=== PATIENT | female | born 1965 | race Caucasian/White ===

== ENCOUNTER 2016-12-05 13:05 | Emergency (ER) | payer MEDICAID ==
[2016-12-05 13:23] VITALS: BP 128/79
--- NOTE | 2016-12-05 13:52 | EDM.PDOC ---
ED HPI GENERAL MEDICAL PROBLEM - General Chief Complaint: Abdominal Pain Stated Complaint: FEEDING TUBE ISSUE Time Seen by Provider: 12/05/16 13:42 Source of Information: Reports: Patient, Family, Old records, RN notes reviewed History Limitations: Reports: No limitations - History of Present Illness INITIAL COMMENTS - FREE TEXT/NARRATIVE: 51-year-old female presents to the emergency department today with concern of infection around her G-tube, she has had complications with prior G-tube which included infection and abscess this was recently moved to a new site middle of October, she states tube has been functioning properly no issues however today she started having greenish discharge from around the tube, the prior wound from the first G-tube is healing well still open but no drainage from that site , she denies any fevers has been on prophylactic antibiotics of amoxicillin but cannot take that medication secondary to side effects of nausea and vomiting - Related Data Allergies Allergy/AdvReac Type Severity Reaction Status Date / Time Sulfa (Sulfonamide Allergy Mild Rash Verified 12/05/16 13:26 Antibiotics) morphine AdvReac Vomiting Verified 12/05/16 13:26 Tape AdvReac Blisters Uncoded 12/05/16 13:26 Home Meds: Home Meds Acetaminophen [Acetaminophen Extra Strength] 500 mg PO Q6H PRN 10/29/16 [History ] Aspirin [Ecotrin] 81 mg PO DAILY 10/29/16 [History] Calcium Citrate/Vitamin D3 [Calcium Citrate + D] 1 each PO BID 10/29/16 [History ] Cholecalciferol (Vitamin D3) [Vitamin D3] 3,000 unit PO DAILY 10/29/16 [History] Cholecalciferol (Vitamin D3) [Vitamin D3] 5,000 unit PO DAILY 10/29/16 [History] Cyanocobalamin (Vitamin B-12) [Vitamin B-12] 1,000 mcg PO DAILY 10/29/16 [ History] Dulaglutide [Trulicity] 0.75 mg SQ Q7D 10/29/16 [History] Ergocalciferol (Vitamin D2) [Vitamin D2] 50,000 unit PO DAILY 10/29/16 [History] Gabapentin [Neurontin] 300 mg PO BID 10/29/16 [History] Gabapentin [Neurontin] 600 mg PO BEDTIME 10/29/16 [History] Lactase [Lactaid Fast Act] 9,000 unit PO TID 10/29/16 [History] Magnesium Oxide 400 mg PO DAILY 10/29/16 [History] Multivitamins [Childrens Chewable Vitamin] 1 tab PO BID 10/29/16 [History] Sertraline [Zoloft] 25 mg PO DAILY 10/29/16 [History] Vitamin B Complex [B Complex] 1 each PO DAILY 10/29/16 [History] Lubiprostone [Amitiza] 24 mcg PO BIDMEALS #60 cap 11/05/16 [Rx] Amoxicillin/Potassium Clav [Amox-Clav 875-125 mg Tablet] 1 tab PO DAILY [History] Insulin Glarg,Human.Rec.Analog [Lantus Solostar] 25 unit SQ BEDTIME 12/05/16 [ History] Insulin Lispro [HumaLOG] 100 units SQ 12/05/16 [History] Past Medical History Gastrointestinal History: Reports: Cholelithiasis 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 Restless Leg Syndrome Neurological History: Reports: Neuropathy, peripheral Psychiatric History: Reports: Anxiety, Depression Endocrine/Metabolic History: Reports: Diabetes, type II Hematologic History: Reports: B12 deficiency - Infectious Disease History Infectious Disease History: Reports: Chicken pox - Past Surgical History GI Surgical History: Reports: Bariatric procedure, Cholecystectomy, EGD, Other ( see below) Other GI Surgeries/Procedures: feeding tube Female Surgical History: Reports: section, Hysterectomy, Salpingo- oophorectomy Social & Family History - Tobacco Use Smoking Status *Q: Current Every Day Smoker Years of Tobacco use: 41 Packs/Tins Daily: 0.2 Used Tobacco, but Quit: No Month Tobacco Last Used: 2 weeks ago Second Hand Smoke Exposure: No - Caffeine Use Caffeine Use: Reports: Coffee - Alcohol Use Days Per Week of Alcohol Use: 0 - Recreational Drug Use Recreational Drug Use: No ED ROS GENERAL - Review of Systems Review Of Systems: See Below Constitutional: Denies: fever, chills HEENT: Reports: No symptoms Respiratory: Reports: no symptoms Cardiovascular: Reports: No symptoms GI/Abdominal: Reports: No symptoms : Reports: no symptoms Skin: Reports: wound ED EXAM, GENERAL - Physical Exam Exam: See Below Free Text/Narrative:: Examination of the abdomen she does have a G-tube placed mid left side above that is an open wound appears to be healing by second intention there is no discharge from the open wound she does have thick greenish discharge from around the G-tube, otherwise the abdomen is soft and nontender Exam Limited By: No limitations General Appearance: alert, WD/WN, no apparent distress Respiratory/Chest: no respiratory distress Course - Vital Signs Last Recorded V/S: Last Vital Signs Temp 96.3 F 12/05/16 13:37 Pulse 87 12/05/16 13:37 Resp 14 12/05/16 13:37 BP 128/79 12/05/16 13:37 Pulse Ox 99 12/05/16 13:37 - Orders/Labs/Meds Labs: Laboratory Tests 12/05/16 Range/Units 13:55 WBC 8.4 (4.5-11.0) K/uL RBC 4.69 (3.30-5.50) M/uL Hgb 13.7 D (12.0-15.0) g/dL Hct 41.8 (36.0-48.0) % MCV 89 (80-98) fL MCH 29 (27-31) pg MCHC 33 (32-36) % Plt Count 366 (150-400) K/uL Neut % (Auto) 61 (36-66) % Lymph % (Auto) 29 (24-44) % Beauregard % (Auto) 5 (2-6) % Eos % (Auto) 4 (2-4) % Baso % (Auto) 1 (0-1) % Departure - Departure Time of Disposition: 14:39 Disposition: Home, Self-Care 01 Condition: good Clinical Impression: Gastrostomy tube dysfunction Forms: ED Department Discharge Additional Instructions: Take full course of antibiotics, keep follow up appointment with surgery next week call or return to the emergency department with worsening of symptoms - Assessment/Plan Plan: Assessment Acuity = acute Site and laterality = question infection around the G-tube Etiology = unclear etiology Manifestations = none Location of injury = home Lab values = CBC within normal limits Plan Call discussed case with surgery oracle adf consultant recommended followup in clinic next week try antibiotics of clindamycin Patient was in agreement with the plan all questions were answered, they were instructed to return to the emergency department or call for worsening symptoms. This note was dictated using [employer] voice recognition software please call with any questions.
== END 2016-12-05 15:02 | disposition home or self-care (01) ==
LOC: JP.ED 13:05
DX: K94.23 Gastrostomy malfunction (principal); E11.9 Type 2 diabetes mellitus without complications; Z88.2 Allergy status to sulfonamides; Z88.8 Allergy status to other drugs, medicaments and biological substances; Z79.899 Other long term (current) drug therapy; Z79.82 Long term (current) use of aspirin; Z90.710 Acquired absence of both cervix and uterus
CPT/HCPCS: 36415; 85025; 99283

== ENCOUNTER 2016-12-14 18:23 | Emergency (ER) | payer MEDICAID ==
[2016-12-14 19:29] VITALS: BP 160/89
[2016-12-14] MEDS ORDERED: Lactated Ringers 1,000 ML IV ONE (19:52)
[2016-12-14] MEDS ORDERED: Ondansetron 4 MG/2 ML SDV IVPUSH ONE ×2 (19:53→21:30)
[2016-12-14] MEDS ORDERED: Ondansetron 4 MG/2 ML SDV ONE (21:32)
--- NOTE | 2016-12-14 22:05 | EDM.PDOC ---
ED HPI GI/ABDOMINAL - General Chief Complaint: Gastrointestinal Problem Stated Complaint: VOMITING Time Seen by Provider: 12/14/16 19:48 Source: Reports: Patient History Limitations: Reports: No limitations - History of Present Illness INITIAL COMMENTS - FREE TEXT/NARRATIVE: History of present illness: [This is a 51-year-old female with a history of gastric bypass presenting with nausea but no vomiting. She has a feeding tube in and about a week ago started eating fairly because of her improvement in it was thought that she would be able to tolerate this. She and she's having she now presents with nausea but no vomiting. She periodically has had trouble with nausea and wishes that she could take something for it when this occurs rather than coming to the ER. Chest and abdominal pain fevers or chills constipation or diarrhea or dysuria] Review of systems: As per history of present illness and below otherwise all systems reviewed and negative. Past medical history: As per history of present illness and as reviewed below otherwise noncontributory. Surgical history: As per history of present illness and as reviewed below otherwise noncontributory. Social history: No reported history of drug or alcohol abuse. Family history: As per history of present illness and as reviewed below otherwise noncontributory. Physical exam: HEENT: Atraumatic, normocephalic, pupils reactive, negative for conjunctival pallor or scleral icterus, mucous membranes moist, throat clear, neck supple, nontender, trachea midline. Lungs: Clear to auscultation, breath sounds equal bilaterally, chest nontender. Heart: S1S2, regular, negative for clicks, rubs, or JVD. Abdomen: Soft, nondistended, nontender. Negative for masses or hepatosplenomegaly. Negative for costovertebral tenderness. Pelvis: Stable nontender. Genitourinary: Deferred. Rectal: Deferred. Extremities: Atraumatic, negative for cords or calf pain. Neurovascular unremarkable. Neuro: Awake, alert, oriented. Cranial nerves II through XII unremarkable. Cerebellum unremarkable. Motor and sensory unremarkable throughout. Exam nonfocal. Diagnostics: [CBC complete metabolic panel and UA were done in the pain identified there was significant.] Therapeutics: [She received 2 doses of IV Zofran and IV fluids and felt better with this.] Impression: [Nausea Status post gastric bypass] Plan: [Radha her out with sublingual Zofran 4 use in the future.] Definitive disposition and diagnosis as appropriate pending reevaluation and review of above. - Related Data Allergies/ADRs: Allergies Allergy/AdvReac Type Severity Reaction Status Date / Time Sulfa (Sulfonamide Allergy Mild Rash Verified 12/14/16 19:29 Antibiotics) morphine AdvReac Vomiting Verified 12/14/16 19:29 Tape AdvReac Blisters Uncoded 12/05/16 13:26 Home Meds: Home Meds Acetaminophen [Acetaminophen Extra Strength] 500 mg PO Q6H PRN 10/29/16 [History ] Calcium Citrate/Vitamin D3 [Calcium Citrate + D] 1 each PO BID 10/29/16 [History ] Cholecalciferol (Vitamin D3) [Vitamin D3] 3,000 unit PO DAILY 10/29/16 [History] Cholecalciferol (Vitamin D3) [Vitamin D3] 5,000 unit PO DAILY 10/29/16 [History] Cyanocobalamin (Vitamin B-12) [Vitamin B-12] 15 ml PO DAILY 10/29/16 [History] Dulaglutide [Trulicity] 1.5 mg SQ Q7D 10/29/16 [History] Ergocalciferol (Vitamin D2) [Vitamin D2] 50,000 unit PO ASDIRECTED 10/29/16 [ History] Gabapentin [Neurontin] 300 mg PO BID 10/29/16 [History] Gabapentin [Neurontin] 600 mg PO BEDTIME 10/29/16 [History] Lactase [Lactaid Fast Act] 9,000 unit PO TID 10/29/16 [History] Magnesium Oxide 400 mg PO DAILY 10/29/16 [History] Multivitamins [Childrens Chewable Vitamin] 1 tab PO BID 10/29/16 [History] Sertraline [Zoloft] 25 mg PO DAILY 10/29/16 [History] Vitamin B Complex [B Complex] 1 each PO DAILY 10/29/16 [History] Insulin Glarg,Human.Rec.Analog [Lantus Solostar] 25 unit SQ BEDTIME 12/05/16 [ History] Insulin Lispro [HumaLOG] 100 units SQ TIDAC 12/05/16 [History] Clindamycin Palmitate HCl [Cleocin Palmitate] 75 mg PO BID 12/14/16 [History] traMADol [Ultram] 1 - 2 tab PO Q4H PRN 12/14/16 [History] Past Medical History Gastrointestinal History: Reports: Cholelithiasis 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 Restless Leg Syndrome Neurological History: Reports: Neuropathy, peripheral Psychiatric History: Reports: Anxiety, Depression Endocrine/Metabolic History: Reports: Diabetes, type I Hematologic History: Reports: B12 deficiency - Infectious Disease History Infectious Disease History: Reports: Chicken pox - Past Surgical History GI Surgical History: Reports: Bariatric procedure, Cholecystectomy, EGD, Other ( see below) Other GI Surgeries/Procedures: feeding tube Female Surgical History: Reports: section, Hysterectomy, Salpingo- oophorectomy Social & Family History - Tobacco Use Smoking Status *Q: Light Tobacco Smoker Years of Tobacco use: 15 Packs/Tins Daily: 0.3 Used Tobacco, but Quit: No Month Tobacco Last Used: 2 weeks ago Second Hand Smoke Exposure: No - Caffeine Use Caffeine Use: Reports: Coffee - Alcohol Use Days Per Week of Alcohol Use: 0 - Recreational Drug Use Recreational Drug Use: No ED ROS GENERAL - Review of Systems Review Of Systems: ROS reveals no pertinent complaints other than HPI. ED EXAM, GI/ABD - Physical Exam Exam: See Below Course - Vital Signs Last Recorded V/S: Last Vital Signs Temp 36.5 C 12/14/16 19:28 Pulse 97 12/14/16 19:28 Resp 14 12/14/16 19:28 BP 160/89 H 12/14/16 19:28 Pulse Ox 98 12/14/16 19:28 - Orders/Labs/Meds Labs: Laboratory Tests 12/14/16 12/14/16 Range/Units 20:07 20:07 WBC 9.6 (4.5-11.0) K/uL RBC 4.90 (3.30-5.50) M/uL Hgb 14.1 (12.0-15.0) g/dL Hct 42.8 (36.0-48.0) % MCV 87 (80-98) fL MCH 29 (27-31) pg MCHC 33 (32-36) % Plt Count 367 (150-400) K/uL Neut % (Auto) 83 H (36-66) % Lymph % (Auto) 14 L (24-44) % Archuleta % (Auto) 3 (2-6) % Eos % (Auto) 0 L (2-4) % Baso % (Auto) 0 (0-1) % Sodium 140 (140-148) mmol/L Potassium 4.3 (3.6-5.2) mmol/L Chloride 101 (100-108) mmol/L Carbon Dioxide 29 (21-32) mmol/L Anion Gap 10.2 (5.0-14.0) mmol/L BUN 10 (7-18) mg/dL Creatinine 0.6 (0.6-1.0) mg/dL Est Cr Clr Drug Dosing 86.19 mL/min Estimated GFR (MDRD) > 60 (>60) Glucose 183 H (74-106) mg/dL Calcium 9.4 D (8.5-10.1) mg/dL Total Bilirubin 0.4 D (0.2-1.0) mg/dL AST 35 D (15-37) U/L ALT 43 D (12-78) U/L Alkaline Phosphatase 74 (46-116) U/L Total Protein 8.1 (6.4-8.2) g/dL Albumin 3.7 (3.4-5.0) g/dL Globulin 4.4 H (2.3-3.5) g/dL Albumin/Globulin Ratio 0.8 L (1.2-2.2) Amylase 60 (25-115) U/L Lipase 125 (73-393) U/L Meds: Medications Discontinued Medications Generic Name Dose Route Start Last Admin Trade Name Freq PRN Reason Stop Dose Admin Lactated Ringer's 1,000 mls @ 999 mls/hr 12/14/16 19:52 12/14/16 20:07 Ringers, Lactated IV 12/14/16 20:52 999 mls/hr BOLUS ONE Administration Ondansetron HCl 4 mg 12/14/16 19:53 12/14/16 20:06 Zofran IVPUSH 12/14/16 19:54 4 mg ONETIME ONE Administration Ondansetron HCl 4 mg 12/14/16 21:30 12/14/16 21:37 Zofran IVPUSH 12/14/16 21:31 4 mg ONETIME ONE Administration Ondansetron HCl Confirm 12/14/16 21:32 12/14/16 21:37 Zofran Administered 12/14/16 21:33 Not Given Dose 4 mg .ROUTE .STK-MED ONE Departure - Departure Time of Disposition: 22:04 Disposition: Home, Self-Care 01 Condition: good Clinical Impression: Nausea, Status post gastric bypass for obesity Forms: ED Department Discharge Additional Instructions: Please followup in the emergency room as needed. Hopefully these medications that were providing help you in the future with your nausea but if you do develop significant nausea vomiting or abdominal pain he should return to the emergency room for evaluation.
== END 2016-12-14 22:13 | disposition home or self-care (01) ==
LOC: JP.ED 18:23
DX: R11.0 Nausea (principal); F41.9 Anxiety disorder, unspecified; F32.9 Major depressive disorder, single episode, unspecified; E10.9 Type 1 diabetes mellitus without complications; F17.210 Nicotine dependence, cigarettes, uncomplicated; Z98.84 Bariatric surgery status; Z90.49 Acquired absence of other specified parts of digestive tract; Z90.710 Acquired absence of both cervix and uterus; Z90.721 Acquired absence of ovaries, unilateral; Z79.4 Long term (current) use of insulin; Z79.899 Other long term (current) drug therapy; Z88.2 Allergy status to sulfonamides; Z88.5 Allergy status to narcotic agent; Z91.048 Other nonmedicinal substance allergy status
CPT/HCPCS: 36415; 80053; 82150; 83690; 85025; 96361; 96374; 96376; 99284; J2405; J7120

== ENCOUNTER 2019-04-16 10:07 | Emergency (ER) | payer MEDICAID ==
[2019-04-16 10:24] VITALS: BP 109/46; PULSE 70
[2019-04-16] MEDS ORDERED: HYDROmorphone 0.5 MG/0.5 ML Syringe IVPUSH ONE (11:08)
[2019-04-16] MEDS ORDERED: Ondansetron 4 MG/2 ML SDV IVPUSH ONE (11:09)
--- NOTE | 2019-04-16 11:17 | EDM.PDOC ---
ED HPI GENERAL MEDICAL PROBLEM - General Chief Complaint: Lower Extremity Injury/Pain Stated Complaint: LOWER HIP PAIN Time Seen by Provider: 04/16/19 11:03 - History of Present Illness INITIAL COMMENTS - FREE TEXT/NARRATIVE: woke up this morning with severe pain down her left buttock and down the leg States she hasn't had this before. She is a diabetic; s/p bariatric surgery. She hasn't checked her blood sugars in "a couple of weeks". She denies any type of injury rates pain is a 10/10 and has nausea. 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 Therapy, Other (see below) (heating pad) - Related Data Allergies Allergy/AdvReac Type Severity Reaction Status Date / Time Sulfa (Sulfonamide Allergy Mild Rash Verified 12/14/16 19:29 Antibiotics) morphine AdvReac Vomiting Verified 12/14/16 19:29 Tape AdvReac Blisters Uncoded 12/05/16 13:26 Home Meds: Home Meds Acetaminophen [Acetaminophen Extra Strength] 500 mg PO Q6H PRN 10/29/16 [History ] Calcium Citrate/Vitamin D3 [Calcium Citrate + D] 1 each PO BID 10/29/16 [History ] Cholecalciferol (Vitamin D3) [Vitamin D3] 5,000 unit PO DAILY 10/29/16 [History] Cyanocobalamin (Vitamin B-12) [Vitamin B-12] 15 ml PO DAILY 10/29/16 [History] Ergocalciferol (Vitamin D2) [Vitamin D2] 50,000 unit PO ASDIRECTED 10/29/16 [ History] Gabapentin [Neurontin] 600 mg PO TID 10/29/16 [History] Magnesium Oxide 400 mg PO DAILY 10/29/16 [History] Multivitamins [Childrens Chewable Vitamin] 1 tab PO BID 10/29/16 [History] Sertraline [Zoloft] 25 mg PO DAILY 10/29/16 [History] Vitamin B Complex [B Complex] 1 each PO DAILY 10/29/16 [History] Insulin Lispro [HumaLOG] 2 - 10 units SQ TIDAC 12/05/16 [History] Cyclobenzaprine [Flexeril] 10 mg PO TID PRN #15 tab 04/16/19 [Rx] Diphenoxylate HCl/Atropine [Lomotil] 1 tab PO QID PRN 04/16/19 [History] Dulaglutide [Trulicity] 1.5 mg SUBCNJ WEEKLY 04/16/19 [History] Omeprazole 40 mg PO DAILY 04/16/19 [History] Ondansetron [Zofran ODT] 4 mg PO Q6H PRN #12 tab.dis 04/16/19 [Rx] Ranitidine [Zantac] 150 mg PO BID 04/16/19 [History] atorvaSTATin [Lipitor] 20 mg PO DAILY 04/16/19 [History] Past Medical History Gastrointestinal History: Reports: Cholelithiasis 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 Restless Leg Syndrome Neurological History: Reports: Neuropathy, Peripheral Psychiatric History: Reports: Anxiety, Depression Endocrine/Metabolic History: Reports: Diabetes, Type I Hematologic History: Reports: B12 Deficiency - Infectious Disease History Infectious Disease History: Reports: Chicken Pox - Past Surgical History GI Surgical History: Reports: Bariatric Procedure, Cholecystectomy, EGD, Other ( See Below) Female Surgical History: Reports: Section, Hysterectomy, Salpingo- Oophorectomy Social & Family History - Tobacco Use Years of Tobacco use: 20 Packs/Tins Daily: 0.5 - Caffeine Use Caffeine Use: Reports: Coffee, Soda - Recreational Drug Use Recreational Drug Use: No Review of Systems - Review of Systems Review Of Systems: See Below Constitutional: Reports: No Symptoms Respiratory: Reports: No Symptoms Cardiovascular: Reports: No Symptoms GI/Abdominal: Reports: No Symptoms Genitourinary: Reports: No Symptoms Musculoskeletal: Reports: Back Pain, Leg Pain Skin: Reports: No Symptoms Neurological: Reports: No Symptoms ED EXAM, GENERAL - Physical Exam Exam: See Below Exam Limited By: No Limitations General Appearance: Alert, WD/WN, No Apparent Distress Head: Atraumatic, Normocephalic Neck: Normal Inspection, Supple, Non-Tender, Full Range of Motion Respiratory/Chest: Lungs Clear, Normal Breath Sounds Cardiovascular: Regular Rate, Rhythm Peripheral Pulses: 4+: Posterior Tibial (L), Posterior Tibial (R), Dorsalis Pedis (L), Dorsalis Pedis (R) Back Exam: Normal Inspection, Full Range of Motion, Other (lower left buttock and down left leg, sharp, stabbing/shooting pain.) Course - Vital Signs Last Recorded V/S: Last Vital Signs Temp 95.7 F 04/16/19 10:25 Pulse 70 04/16/19 10:25 Resp 20 04/16/19 10:25 BP 109/46 L 04/16/19 10:25 Pulse Ox 98 04/16/19 10:25 - Orders/Labs/Meds Meds: Medications Discontinued Medications Generic Name Dose Route Start Last Admin Trade Name Freq PRN Reason Stop Dose Admin Hydromorphone HCl 0.5 mg 04/16/19 11:08 04/16/19 11:20 Dilaudid IVPUSH 04/16/19 11:09 0.5 mg ONETIME ONE Administration Ondansetron HCl 4 mg 04/16/19 11:09 04/16/19 11:20 Zofran IVPUSH 04/16/19 11:10 4 mg ONETIME ONE Administration - Re-Assessments/Exams Free Text/Narrative Re-Assessment/Exam: 04/16/19 11:13 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 [facility]. Free Text/Narrative Re-Assessment/Exam: 04/16/19 11:50 Pain is still present but pain medicine has taken the edge off. Discussed ways of treating her pain. Departure - Departure Time of Disposition: 11:47 Disposition: Home, Self-Care 01 Condition: Fair Clinical Impression: Hip pain, left Sciatica Qualifiers: Laterality: left Qualified Code(s): M54.32 - Sciatica, left side - Discharge Information *PRESCRIPTION DRUG MONITORING PROGRAM REVIEWED*: Yes *COPY OF PRESCRIPTION DRUG MONITORING REPORT IN PATIENT AMEE: No Prescriptions: Cyclobenzaprine [Flexeril] 10 mg PO TID PRN #15 tab PRN Reason: Pain (Moderate 4-6) Ondansetron [Zofran ODT] 4 mg PO Q6H PRN #12 tab.dis PRN Reason: Nausea Instructions: Sciatica Referrals: PCP,None [Primary Care Provider] - Forms: ED Department Discharge Additional Instructions: Ice, stretch Tylenol 500 mg every 6 hours for pain If pain is persistent, consider physical therapy; TENS unit is another device that can be considered; (Trans electrical nerve stimulation) Can be bought off [email or web address] or your doctor can write you a prescription to be taken to a durable medical detail representative store. - Problem List & Annotations (1) Sciatica SNOMED Code(s): 49428833 Code(s): M54.30 - SCIATICA, UNSPECIFIED SIDE Status: Acute Priority: Medium Qualifiers: Laterality: left Qualified Code(s): M54.32 - Sciatica, left side (2) Hip pain, left SNOMED Code(s): 07744082 Code(s): M25.552 - PAIN IN LEFT HIP Status: Acute Priority: Low
== END 2019-04-16 12:19 | disposition home or self-care (01) ==
LOC: JP.ED 10:07
DX: M54.32 Sciatica, left side (principal); M25.552 Pain in left hip; E10.9 Type 1 diabetes mellitus without complications; F41.9 Anxiety disorder, unspecified; F32.9 Major depressive disorder, single episode, unspecified; F17.210 Nicotine dependence, cigarettes, uncomplicated; Z98.84 Bariatric surgery status; Z88.2 Allergy status to sulfonamides; Z88.5 Allergy status to narcotic agent; Z91.048 Other nonmedicinal substance allergy status; Z79.899 Other long term (current) drug therapy
CPT/HCPCS: 96374; 96375; 99282; J1170; J2405

== ENCOUNTER 2019-09-27 08:30 | Emergency (ER) | payer MEDICAID ==
[2019-09-27 08:45] VITALS: BP 99/52; PULSE 67
--- NOTE | 2019-09-27 09:03 | EDM.PDOC ---
ED HPI GENERAL MEDICAL PROBLEM - General Chief Complaint: Genitourinary Problem Stated Complaint: POSSIBLE YEAST INFECTION Time Seen by Provider: 09/27/19 09:02 Source of Information: Reports: Patient History Limitations: Reports: No Limitations - History of Present Illness INITIAL COMMENTS - FREE TEXT/NARRATIVE: pt is having a very heavy vag discharge. She thinks she may have a yeast infection. This discharge has a oder. It started about 3 days ago. She is not having alot of swelling or external irritation Onset: Gradual, Other (last 3 days. ) Duration: Hour(s): Location: Reports: Other ( vaginal discahrge. ) Associated Symptoms: Reports: No Other Symptoms - Related Data Allergies Allergy/AdvReac Type Severity Reaction Status Date / Time Sulfa (Sulfonamide Allergy Mild Rash Verified 09/27/19 08:49 Antibiotics) morphine AdvReac Vomiting Verified 09/27/19 08:49 Tape AdvReac Blisters Uncoded 09/27/19 08:49 Home Meds: Home Meds Acetaminophen [Acetaminophen Extra Strength] 500 mg PO Q6H PRN 10/29/16 [History ] Calcium Citrate/Vitamin D3 [Calcium Citrate + D] 1 each PO BID 10/29/16 [History ] Cholecalciferol (Vitamin D3) [Vitamin D3] 5,000 unit PO DAILY 10/29/16 [History] Cyanocobalamin (Vitamin B-12) [Vitamin B-12] 15 ml PO DAILY 10/29/16 [History] Ergocalciferol (Vitamin D2) [Vitamin D2] 50,000 unit PO ASDIRECTED 10/29/16 [ History] Gabapentin [Neurontin] 600 mg PO TID 10/29/16 [History] Magnesium Oxide 400 mg PO DAILY 10/29/16 [History] Multivitamins [Childrens Chewable Vitamin] 1 tab PO BID 10/29/16 [History] Sertraline [Zoloft] 25 mg PO DAILY 10/29/16 [History] Vitamin B Complex [B Complex] 1 each PO DAILY 10/29/16 [History] Cyclobenzaprine [Flexeril] 10 mg PO TID PRN #15 tab 04/16/19 [Rx] Diphenoxylate HCl/Atropine [Lomotil] 1 tab PO QID PRN 04/16/19 [History] Dulaglutide [Trulicity] 1.5 mg SUBCNJ WEEKLY 04/16/19 [History] Ondansetron [Zofran ODT] 4 mg PO Q6H PRN #12 tab.dis 04/16/19 [Rx] Ranitidine [Zantac] 150 mg PO BID 04/16/19 [History] atorvaSTATin [Lipitor] 20 mg PO DAILY 04/16/19 [History] Past Medical History HEENT History: Reports: Impaired Vision Gastrointestinal History: Reports: Cholelithiasis Genitourinary History: Reports: None 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 Restless Leg Syndrome Neurological History: Reports: Neuropathy, Peripheral Psychiatric History: Reports: Anxiety, Depression Endocrine/Metabolic History: Reports: Diabetes, Type II Hematologic History: Reports: B12 Deficiency - Infectious Disease History Infectious Disease History: Reports: Chicken Pox - Past Surgical History Head Surgeries/Procedures: Reports: None HEENT Surgical History: Reports: None GI Surgical History: Reports: Bariatric Procedure, Cholecystectomy, EGD, Other ( See Below) Female Surgical History: Reports: Section, Hysterectomy, Salpingo- Oophorectomy Endocrine Surgical History: Reports: None Neurological Surgical History: Reports: None Musculoskeletal Surgical History: Reports: None Dermatological Surgical History: Reports: None Social & Family History - Tobacco Use Smoking Status *Q: Current Every Day Smoker Years of Tobacco use: 20 Packs/Tins Daily: 0.5 Used Tobacco, but Quit: No Second Hand Smoke Exposure: No - Caffeine Use Caffeine Use: Reports: Coffee - Recreational Drug Use Recreational Drug Use: Yes Drug Use in Last 12 Months: Yes Recreational Drug Type: Reports: Marijuana/Hashish Recreational Drug Use Frequency: Daily ED ROS GENERAL - Review of Systems Review Of Systems: See Below Constitutional: Reports: No Symptoms HEENT: Reports: No Symptoms Respiratory: Reports: No Symptoms Cardiovascular: Reports: No Symptoms Endocrine: Reports: No Symptoms GI/Abdominal: Reports: No Symptoms : Reports: Other (pt is having a heavy vaginal discharge. ) Musculoskeletal: Reports: No Symptoms Skin: Reports: No Symptoms Neurological: Reports: No Symptoms Psychiatric: Reports: No Symptoms ED EXAM, RENAL/ - Physical Exam Exam: See Below Text/Narrative:: pt arrived with a vaginal discahare which has been smelly and very heavy, Exam Limited By: No Limitations General Appearance: Alert, Anxious Ears: Normal TMs Nose: Normal Inspection Throat/Mouth: Normal Inspection Head: Atraumatic Neck: Normal Inspection Respiratory/Chest: No Respiratory Distress Cardiovascular: Regular Rate, Rhythm GI/Abdominal: Soft, Non-Tender (Female) Exam: Other (pelvic exam showed a yellowish discharge which is smelly and heavy. She is not swollen externall. On pelvic exam samples and cultures were taken. She did have clue cells indicating a probable bacterial vaginosis) Rectal (Female) Exam: Deferred Back Exam: Normal Inspection Extremities: Normal Inspection Neurological: Alert, Oriented, Normal Cognition Psychiatric: Normal Affect Course - Vital Signs Last Recorded V/S: Last Vital Signs Temp 35.8 C 09/27/19 08:51 Pulse 67 09/27/19 08:51 Resp 13 09/27/19 08:51 BP 99/52 L 09/27/19 08:51 Pulse Ox 100 09/27/19 08:51 - Orders/Labs/Meds Labs: Laboratory Tests 09/27/19 Range/Units 09:13 Urine Color Yellow (YELLOW) Urine Appearance Cloudy A (CLEAR) Urine pH 5.5 (5.0-8.0) Ur Specific [place] 1.025 (1.008-1.030) Urine Protein Negative (NEGATIVE) mg/dL Urine Glucose (UA) Negative (NEGATIVE) mg/dL Urine Ketones Trace H (NEGATIVE) mg/dL Urine Occult Blood Moderate H (NEGATIVE) Urine Nitrite Negative (NEGATIVE) Urine Bilirubin Negative (NEGATIVE) Urine Urobilinogen 0.2 (0.2-1.0) EU/dL Ur Leukocyte Esterase Large H (NEGATIVE) Urine RBC 30-40 H (0-5) Urine WBC Semi-packed H (0-5) Ur Epithelial Cells Many Amorphous Sediment Not seen Urine Bacteria Many Urine Mucus Many Meds: Medications Discontinued Medications Generic Name Dose Route Start Last Admin Trade Name Freq PRN Reason Stop Dose Admin Ceftriaxone Sodium 1 gm/ 0 gm 09/27/19 10:29 09/27/19 10:40 Lidocaine HCl 2.1 ml IM 09/27/19 10:30 1 inj ONETIME ONE Administration Metronidazole 500 mg 09/27/19 10:33 09/27/19 10:39 Metronidazole PO 09/27/19 10:34 500 mg ONETIME ONE Administration - Re-Assessments/Exams Free Text/Narrative Re-Assessment/Exam: 09/27/19 10:30 pt had many clu cells on the slide She did not have yeast, Pt has alot of wbcs in the urine and also bacteria a culture was set up. 09/27/19 10:44 09/30/19 08:43 pt has had one sexual partner for the past few months. Departure - Departure Time of Disposition: 10:31 Disposition: Home, Self-Care 01 Condition: Fair Clinical Impression: Bacterial vaginitis - Discharge Information Instructions: Bacterial Vaginosis, [id number] Referrals: Lori Elkins PA-C [Primary Care Provider] - Forms: ED Department Discharge Care Plan Goals: use alot of yogurt when on the antibiotic, push fluids, rtc if not improving, cultures are pending and you will be notified. flagyl 500mg tid. Sepsis Event Note - Evaluation Sepsis Screening Result: No Definite Risk - Focused Exam Date Exam was Performed: 09/30/19 Time Exam was Performed: 08:43
[2019-09-27] MEDS ORDERED: cefTRIAXone 1 GM, Lidocaine 1% 2.1 ML IM ONE ×2 (10:29)
[2019-09-27] MEDS ORDERED: metroNIDAZOLE 250 MG Tab PO ONE (10:33)
[2019-10-02 10:08] LABS: CHLAMYDIA TRACHOMATIS, NAA Equivocal (Negative); NEISSERIA GONORRHOEAE, NAA Negative (Negative)
== END 2019-09-27 10:46 | disposition home or self-care (01) ==
LOC: JP.ED 08:30
DX: N76.0 Acute vaginitis (principal); B96.89 Other specified bacterial agents as the cause of diseases classified elsewhere; F17.210 Nicotine dependence, cigarettes, uncomplicated; E11.40 Type 2 diabetes mellitus with diabetic neuropathy, unspecified; Z88.2 Allergy status to sulfonamides; Z88.5 Allergy status to narcotic agent; Z91.048 Other nonmedicinal substance allergy status; Z79.899 Other long term (current) drug therapy
CPT/HCPCS: 81001; 87086; 87088; 87186; 87210; 87491; 87591; 96372; 99283; A9270; J0696; J2001

== ENCOUNTER 2020-04-11 13:58 | Emergency (ER) | payer MEDICAID ==
[2020-04-11] MEDS ORDERED: Lactated Ringers 1,000 ML IV ONE (15:43)
[2020-04-11] MEDS ORDERED: Prochlorperazine 10 MG/2 ML SDV IVPUSH ONE ×2 (15:44→17:34)
[2020-04-11] MEDS ORDERED: diphenhydrAMINE 50 MG/ML SDV IVPUSH ONE (15:44)
--- NOTE | 2020-04-11 15:47 | EDM.PDOC ---
ED HPI GENERAL MEDICAL PROBLEM - General Chief Complaint: Abdominal Pain Stated Complaint: ABD PAIN Time Seen by Provider: 04/11/20 15:35 Source of Information: Reports: Patient, Old Records History Limitations: Reports: No Limitations - History of Present Illness INITIAL COMMENTS - FREE TEXT/NARRATIVE: 54 yo female s/p gastric bypass presents with nausea and vomiting since MN last night. Has chronic diarrhea as well. Has mild epigastric pain. No distention. No blood in stool or emesis. Onset: Today Onset Date: 04/11/20 Onset Time: 00:00 Duration: Hour(s):, Constant Location: Reports: Abdomen - Related Data Allergies Allergy/AdvReac Type Severity Reaction Status Date / Time Sulfa (Sulfonamide Allergy Mild Rash Verified 09/27/19 08:49 Antibiotics) morphine AdvReac Vomiting Verified 09/27/19 08:49 Tape AdvReac Blisters Uncoded 09/27/19 08:49 Home Meds: Home Meds Acetaminophen [Acetaminophen Extra Strength] 500 mg PO Q6H PRN 10/29/16 [History] Calcium Citrate/Vitamin D3 [Calcium Citrate + D] 1 each PO BID 10/29/16 [History] Cholecalciferol (Vitamin D3) [Vitamin D3] 5,000 unit PO DAILY 10/29/16 [History] Cyanocobalamin (Vitamin B-12) [Vitamin B-12] 15 ml PO DAILY 10/29/16 [History] Ergocalciferol (Vitamin D2) [Vitamin D2] 50,000 unit PO ASDIRECTED 10/29/16 [History] Gabapentin [Neurontin] 600 mg PO TID 10/29/16 [History] Magnesium Oxide 400 mg PO DAILY 10/29/16 [History] Multivitamins [Childrens Chewable Vitamin] 1 tab PO BID 10/29/16 [History] Sertraline [Zoloft] 25 mg PO DAILY 10/29/16 [History] Vitamin B Complex [B Complex] 1 each PO DAILY 10/29/16 [History] Cyclobenzaprine [Flexeril] 10 mg PO TID PRN #15 tab 04/16/19 [Rx] Diphenoxylate HCl/Atropine [Lomotil] 1 tab PO QID PRN 04/16/19 [History] Dulaglutide [Trulicity] 1.5 mg SUBCNJ WEEKLY 07/21/19 [History] Ondansetron [Zofran ODT] 4 mg PO Q6H PRN #12 tab.dis 04/16/19 [Rx] Ranitidine [Zantac] 150 mg PO BID 04/16/19 [History] atorvaSTATin [Lipitor] 20 mg PO DAILY 04/16/19 [History] Past Medical History HEENT History: Reports: Impaired Vision Gastrointestinal History: Reports: Cholelithiasis Genitourinary History: Reports: None 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 Restless Leg Syndrome Neurological History: Reports: Neuropathy, Peripheral Psychiatric History: Reports: Anxiety, Depression Endocrine/Metabolic History: Reports: Diabetes, Type II Hematologic History: Reports: B12 Deficiency - Infectious Disease History Infectious Disease History: Reports: Chicken Pox - Past Surgical History Head Surgeries/Procedures: Reports: None HEENT Surgical History: Reports: None GI Surgical History: Reports: Bariatric Procedure, Cholecystectomy, EGD, Other (See Below) Female Surgical History: Reports: Section, Hysterectomy, Salpingo- Oophorectomy Endocrine Surgical History: Reports: None Neurological Surgical History: Reports: None Musculoskeletal Surgical History: Reports: None Dermatological Surgical History: Reports: None Social & Family History - Tobacco Use Smoking Status *Q: Current Every Day Smoker Years of Tobacco use: 30 Packs/Tins Daily: 0.3 - Caffeine Use Caffeine Use: Reports: Coffee ED ROS GENERAL - Review of Systems Review Of Systems: See Below Constitutional: Reports: Malaise. Denies: Fever HEENT: Reports: No Symptoms Respiratory: Reports: No Symptoms Cardiovascular: Reports: No Symptoms GI/Abdominal: Reports: Abdominal Pain (mild epigastric), Anorexia, Diarrhea, Nausea, Vomiting. Denies: Black Stool, Bloody Stool, Constipation, Distension, Flatus, Hematemesis, Hematochezia, Melena : Reports: No Symptoms Musculoskeletal: Reports: No Symptoms Skin: Reports: No Symptoms Neurological: Reports: No Symptoms ED EXAM, GI/ABD - Physical Exam Exam: See Below Exam Limited By: No Limitations General Appearance: Alert, No Apparent Distress, Thin Eyes: Bilateral: Normal Appearance Ears: Normal External Exam, Normal Canal, Hearing Grossly Normal Nose: Normal Inspection, No Blood Throat/Mouth: Normal Inspection, Normal Lips, Normal Oropharynx, Normal Voice, No Airway Compromise Head: Atraumatic, Normocephalic Neck: Normal Inspection Respiratory/Chest: No Respiratory Distress, Lungs Clear, Normal Breath Sounds, No Accessory Muscle Use Cardiovascular: Regular Rate, Rhythm, No Edema GI/Abdominal Exam: Soft, No Distention, Tender (minimal epigastric tenderness), Abnormal Bowel Sounds (slightly decreased). No: Distended, Guarding, Rigid, Rebound, Hernia Back Exam: Normal Inspection. No: CVA Tenderness (R), CVA Tenderness (L) Extremities: Normal Inspection, Normal Range of Motion, Non-Tender, No Pedal Edema Neurological: Alert, Oriented, CN II-XII Intact, Normal Cognition, No Motor/Sensory Deficits Psychiatric: Normal Affect, Normal Mood Skin Exam: Warm, Dry, Intact, Normal Color, No Rash Course - Vital Signs Last Recorded V/S: Last Vital Signs Temp 35.7 C L 04/11/20 14:54 Pulse 86 04/11/20 17:32 Resp 16 04/11/20 17:32 BP 159/80 H 04/11/20 17:32 Pulse Ox 98 04/11/20 17:32 - Orders/Labs/Meds Orders: Active Orders 24 hr Category Date Time Status UA W/MICROSCOPIC [URIN] Stat Lab 04/11/20 15:43 Ordered Labs: Laboratory Tests 04/11/20 04/11/20 04/11/20 Range/Units 15:57 15:57 15:57 WBC 11.7 H (4.5-11.0) K/uL RBC 4.79 (3.30-5.50) M/uL Hgb 14.4 (12.0-15.0) g/dL Hct 43.2 (36.0-48.0) % MCV 90 (80-98) fL MCH 30 (27-31) pg MCHC 33 (32-36) % Plt Count 286 (150-400) K/uL Sodium 142 (140-148) mmol/L Potassium 4.1 (3.6-5.2) mmol/L Chloride 103 (100-108) mmol/L Carbon Dioxide 27 (21-32) mmol/L Anion Gap 12.1 (5.0-14.0) mmol/L BUN 16 D (7-18) mg/dL Creatinine 0.9 (0.6-1.0) mg/dL Est Cr Clr Drug Dosing 56.48 mL/min Estimated GFR (MDRD) > 60 (>60) Glucose 205 H (74-106) mg/dL Calcium 9.0 (8.5-10.1) mg/dL Magnesium 1.7 L (1.8-2.4) mg/dL Total Bilirubin 0.7 D (0.2-1.0) mg/dL AST 27 (15-37) U/L ALT 29 (12-78) U/L Alkaline Phosphatase 71 (46-116) U/L Total Protein 7.3 (6.4-8.2) g/dL Albumin 3.9 (3.4-5.0) g/dL Globulin 3.4 (2.3-3.5) g/dL Albumin/Globulin Ratio 1.1 L (1.2-2.2) Lipase 43 L (73-393) U/L Meds: Medications Discontinued Medications Generic Name Dose Route Start Last Admin Trade Name Freq PRN Reason Stop Dose Admin Diphenhydramine HCl 25 mg 04/11/20 15:44 04/11/20 16:48 Benadryl IVPUSH 04/11/20 15:45 25 mg ONETIME ONE Administration Lactated Ringer's 1,000 mls @ 1,000 mls/hr 04/11/20 15:43 04/11/20 16:45 Ringers, Lactated IV 04/11/20 16:42 1,000 mls/hr BOLUS ONE Administration Prochlorperazine Edisylate 5 mg 04/11/20 15:44 04/11/20 16:51 Compazine IVPUSH 04/11/20 15:45 5 mg ONETIME ONE Administration Prochlorperazine Edisylate 5 mg 04/11/20 17:34 04/11/20 17:41 Compazine IVPUSH 04/11/20 17:35 5 mg ONETIME ONE Administration - Re-Assessments/Exams Free Text/Narrative Re-Assessment/Exam: 04/11/20 17:44 Feeling better after tx Departure - Departure Time of Disposition: 17:50 Disposition: Home, Self-Care 01 Condition: Fair Clinical Impression: Mild dehydration Nausea and vomiting Qualifiers: Vomiting type: unspecified Vomiting Intractability: non-intractable Qualified Code(s): R11.2 - Nausea with vomiting, unspecified - Discharge Information *PRESCRIPTION DRUG MONITORING PROGRAM REVIEWED*: Not Applicable *COPY OF PRESCRIPTION DRUG MONITORING REPORT IN PATIENT AMEE: Not Applicable Instructions: Nausea and Vomiting, Adult, [id number] Referrals: PCP,None [Primary Care Provider] - Forms: ED Department Discharge Additional Instructions: Add compazine 10 mg orally every 6 hrs as needed for ongoing nausea. You may continue your Zofran if needed. Clear liquids tonight. Advance your diet as tolerated. Recheck with your doctor soon. Return as needed. Sepsis Event Note (ED) - Evaluation Sepsis Screening Result: No Definite Risk - Focused Exam Vital Signs: Vital Signs Temp Pulse Resp BP Pulse Ox 04/11/20 17:32 86 16 159/80 H 98 04/11/20 14:54 35.7 C L 65 18 117/78 100 04/11/20 14:45 35.7 C L 65 18 117/78 100 - My Orders Last 24 Hours: My Active Orders 04/11/20 15:43 UA W/MICROSCOPIC [URIN] Stat - Assessment/Plan Last 24 Hours: My Active Orders 04/11/20 15:43 UA W/MICROSCOPIC [URIN] Stat
[2020-04-11 17:32] VITALS: BP 159/80; PULSE 86
== END 2020-04-11 18:22 | disposition home or self-care (01) ==
LOC: JP.ED 13:58
DX: E86.0 Dehydration (principal); R11.2 Nausea with vomiting, unspecified; F41.9 Anxiety disorder, unspecified; F32.9 Major depressive disorder, single episode, unspecified; E11.42 Type 2 diabetes mellitus with diabetic polyneuropathy; F17.210 Nicotine dependence, cigarettes, uncomplicated; G25.81 Restless legs syndrome; Z91.048 Other nonmedicinal substance allergy status; Z88.2 Allergy status to sulfonamides; Z79.899 Other long term (current) drug therapy; Z88.5 Allergy status to narcotic agent
CPT/HCPCS: 36415; 80053; 83690; 83735; 85027; 96361; 96374; 96375; 96376; 99284; J0780; J1200; J7120

== ENCOUNTER 2020-05-16 05:39 | Day surgery (SDC) | payer MEDICAID ==
[2020-05-16] MEDS ORDERED: Dextrose 5%-Lactated Ringers 1,000 ML IV SCH (06:40)
[2020-05-16] MEDS ORDERED: Propofol 200 MG/20 ML SDV ONE (07:08)
[2020-05-16] MEDS ORDERED: Midazolam 1 MG/ML 2 ML SDV ONE (07:08)
[2020-05-16] MEDS ORDERED: fentaNYL 100 MCG/2 ML SDV ONE (07:08)
[2020-05-16 08:55] VITALS: BP 107/64; PULSE 66
--- NOTE | 2020-05-28 09:18 | OR ---
DATE OF PROCEDURE: 05/16/2020 SURGEON: Hadley Penny MD PREOPERATIVE DIAGNOSIS: Chronic loose bowel movements/diarrhea. POSTOPERATIVE DIAGNOSIS: Chronic loose bowel movements/diarrhea. OPERATIVE PROCEDURE: Flexible colonoscopy with: 1. Collection of stool for culture and sensitivity (29166). 2. Random colorectal biopsies to rule out microscopic colitis ([id number]). ANESTHESIA: IV sedation. INDICATION FOR PROCEDURE: This is a 54-year-old status post previous Sarah-en-Y gastric bypass, presenting with some chronic loose bowel movements and diarrhea, who has been on Lomotil. Plan is to proceed with a flexible colonoscopy with collection of stool for C and S, and if no specific pathology seen, we will get random colorectal biopsies to rule out microscopic colitis. Potential risks of procedure including bleeding and perforation were discussed, and the patient wishes to proceed. DETAILS OF PROCEDURE: The patient was taken to the operating room, placed in a left lateral decubitus position. IV sedation was administered, after which the initial digital rectal exam was performed and was unremarkable. Colonoscope was then passed into the rectum with retroflexion revealing uncomplicated hemorrhoidal columns. Scope was then passed to the level of the cecum. The prep was quite good and only a small amount of liquid stool was present. Some of this was collected and sent for a full microbiologic workup. To that level, no specific pathology was seen. There were no diverticula, no areas of colitis obviously present, and no polyps or other signs of neoplasia. The scope was withdrawn. Random colorectal biopsies were obtained throughout the length of the colon and rectum. A minimal amount of bleeding from the biopsy sites was seen and the procedure then concluded. If microscopic colitis is confirmed, medical treatment would be initiated for that. Otherwise the patient, in the meantime, is instructed to increase her fiber using something like Metamucil, and she will be seeing Dulce Coleman back in 2 weeks. If she is still having the problems with diarrhea at that point and otherwise no specific diagnosis has been obtained, one might add Imodium to the medical management. Hadley Penny MD /[id number]
== END 2020-05-16 09:04 | disposition home or self-care (01) ==
LOC: JP.SDS 05:39
PROVIDERS: ATTEND Surgery
DX: R19.4 Change in bowel habit (principal); R19.7 Diarrhea, unspecified; F17.200 Nicotine dependence, unspecified, uncomplicated; E11.9 Type 2 diabetes mellitus without complications; Z98.84 Bariatric surgery status
CPT/HCPCS: 45380; 87046; 87177; 87209; 87493; 87899; 89055; J2250; J2704; J3010; J7121

== ENCOUNTER 2021-11-21 09:40 | Emergency (ER) | payer MEDICAID ==
[2021-11-21] MEDS ORDERED: Ketorolac 30 MG/ML SDV IM ONE (10:33)
[2021-11-21 11:51] VITALS: BP 130/70; PULSE 68
== END 2021-11-21 12:16 | disposition home or self-care (01) ==
LOC: JP.ED 09:40
DX: S20.211A Contusion of right front wall of thorax, initial encounter (principal); E11.9 Type 2 diabetes mellitus without complications; Z79.82 Long term (current) use of aspirin; Z79.899 Other long term (current) drug therapy; Z88.2 Allergy status to sulfonamides; Z88.5 Allergy status to narcotic agent; Z72.0 Tobacco use; W00.0XXA Fall on same level due to ice and snow, initial encounter
CPT/HCPCS: 71046; 96372; 99282; 99283; J1885

== ENCOUNTER 2022-02-23 18:07 | Emergency (ER) | payer MEDICAID ==
[2022-02-23] MEDS ORDERED: Sodium Chloride 0.9% 10 ML Syringe FLUSH PRN (18:40)
[2022-02-23] MEDS ORDERED: Ondansetron 4 MG/2 ML SDV IVPUSH ONE (18:42)
[2022-02-23] MEDS ORDERED: Pantoprazole 40 MG Vial IVPUSH ONE (18:43)
[2022-02-23] MEDS ORDERED: Sodium Chloride 0.9% 500 ML IV ONE (18:43)
[2022-02-23] MEDS ORDERED: Aspirin 81 MG Tab.Chew PO ONE (18:59)
[2022-02-23] MEDS ORDERED: Nitroglycerin 0.4 MG Tab.SL SL ONE (19:30)
[2022-02-23] MEDS ORDERED: Heparin Sodium 5,000 Units/ML Vial IVPUSH ONE (19:37)
[2022-02-23] MEDS ORDERED: Nitroglycerin/D5W 25 MG/250 ML BOTTLE IV SCH (19:45)
[2022-02-23] MEDS ORDERED: Heparin Sodium/D5W 25,000 UNITS/500 ML BAG IV SCH (19:45)
[2022-02-23 20:00] VITALS: BP 121/72; PULSE 84
[2022-02-23] MEDS ORDERED: Tenecteplase 50 MG Kit IV ONE (20:07)
== END 2022-02-23 20:26 ==
LOC: JP.ED 18:07
DX: I21.3 ST elevation (STEMI) myocardial infarction of unspecified site (principal); E11.42 Type 2 diabetes mellitus with diabetic polyneuropathy; E66.9 Obesity, unspecified; Z68.26 Body mass index [BMI] 26.0-26.9, adult; Z98.84 Bariatric surgery status; Z88.2 Allergy status to sulfonamides; Z88.5 Allergy status to narcotic agent; Z91.048 Other nonmedicinal substance allergy status; Z79.82 Long term (current) use of aspirin; Z79.899 Other long term (current) drug therapy; Z20.822 Contact with and (suspected) exposure to COVID-19
CPT/HCPCS: 36415; 71045; 80053; 83735; 84484; 85025; 87635; 92977; 93005; 93010; 96361; 96365; 96368; 96375; 99285; A9270; C9113; J1644; J2405; J3101; J3490; J7040; U0002

== ENCOUNTER 2022-08-02 06:48 | Emergency (ER) | payer MEDICAID ==
[2022-08-02 07:08] VITALS: BP 125/79; PULSE 98
[2022-08-02] MEDS ORDERED: Acetaminophen/HYDROcodone 325-5 MG Tab PO ONE (07:34)
== END 2022-08-02 08:41 | disposition home or self-care (01) ==
LOC: JP.ED 06:48
DX: S83.412A Sprain of medial collateral ligament of left knee, initial encounter (principal); M17.12 Unilateral primary osteoarthritis, left knee; I25.2 Old myocardial infarction; E11.42 Type 2 diabetes mellitus with diabetic polyneuropathy; E66.01 Morbid (severe) obesity due to excess calories; Z68.21 Body mass index [BMI] 21.0-21.9, adult; Z88.2 Allergy status to sulfonamides; Z88.5 Allergy status to narcotic agent; Z91.048 Other nonmedicinal substance allergy status; Z79.82 Long term (current) use of aspirin; Z79.899 Other long term (current) drug therapy
CPT/HCPCS: 73562; 99283; A9270

== ENCOUNTER 2022-08-07 10:14 | Emergency (ER) | payer MEDICAID ==
[2022-08-07] MEDS ORDERED: Ondansetron 4 MG/2 ML SDV IVPUSH ONE (11:17)
[2022-08-07 11:46] LABS: ESTIMATED GFR 65 mL/min (>60); TROPONIN I HIGH SENSITIVITY 46.2 pg/mL (<=60.3)
[2022-08-07] MEDS ORDERED: Lactated Ringers 1,000 ML IV ONE ×2 (11:58→16:40)
[2022-08-07] MEDS: Piperacillin/Tazobactam 3.375 GM in Sodium Chloride 0.9% 50 ML IV SCH ×2 (13:08→20:54)
[2022-08-07 13:18] LABS: CORONAVIRUS COVID-19 NAA NEGATIVE (NEGATIVE)
[2022-08-07] MEDS ORDERED: Sodium Chloride 0.9% 50 ML IV ONE (14:18)
[2022-08-07] MEDS ORDERED: Iopamidol 612 MG/ML 100 ML Bottle IV ONE (14:18)
[2022-08-07] MEDS ORDERED: Levofloxacin/Dextrose 5%-Water 750 MG in Premix Bag 1 BAG IV ONE (16:48)
[2022-08-07] MEDS ORDERED: Enoxaparin 40 MG/0.4 ML Syringe SUBCUT SCH (17:30)
[2022-08-07] MEDS ORDERED: Enoxaparin 40 MG/0.4 ML Syringe ONE (17:55)
[2022-08-07] MEDS ORDERED: Glucose Gel 15 GM in 37.5 GM Tube PO PRN (17:59)
[2022-08-07] MEDS ORDERED: 50% Dextrose in Water 50 ML Syringe IV PRN (17:59)
[2022-08-07] MEDS ORDERED: Folic Acid 50 MG/10 ML MDV IV SCH (18:30)
[2022-08-07] MEDS ORDERED: Iopamidol 755 Mg/ML 100 ML Bottle IV SCH (19:00)
[2022-08-07] MEDS ORDERED: Sodium Chloride 0.9% 100 ML IV SCH (19:00)
[2022-08-07] MEDS ORDERED: Insulin Lispro 100 Unit/ML 3 ML KwikPen SUBCUT SCH (20:00)
[2022-08-07] MEDS ORDERED: Non-Formulary Medication 1 Each (Gabapentin [Neurontin] 600 MG Tablet) PO SCH (21:00)
[2022-08-07] MEDS ORDERED: atorvaSTATin 20 MG Tab PO SCH (21:00)
[2022-08-07 21:40] VITALS: BP 128/84; PULSE 131
[2022-08-07] MEDS ORDERED: Thiamine 100 MG in Sodium Chloride 0.9% 100 ML IV SCH (21:45)
[2022-08-08] MEDS ORDERED: Liraglutide (rDNA Origin) 0.6 MG/0.1 ML 3 ML Pen SUBCUT SCH (09:00)
[2022-08-08] MEDS ORDERED: MVI, Adult with Vitamin K 10 ML in Sodium Chloride 0.9% 1,000 ML IV SCH ×2 (09:00)
[2022-08-08] MEDS ORDERED: Aspirin 81 MG Tab.EC PO SCH (09:00)
[2022-08-08] MEDS ORDERED: Sertraline 25 MG Tab PO SCH (09:00)
== END 2022-08-07 22:00 ==
LOC: JP.ED 10:14
DX: A41.9 Sepsis, unspecified organism (principal); R65.20 Severe sepsis without septic shock; J96.01 Acute respiratory failure with hypoxia; J18.9 Pneumonia, unspecified organism; I25.10 Atherosclerotic heart disease of native coronary artery without angina pectoris; E78.00 Pure hypercholesterolemia, unspecified; I10 Essential (primary) hypertension; E11.9 Type 2 diabetes mellitus without complications; Z88.2 Allergy status to sulfonamides; Z88.6 Allergy status to analgesic agent; Z91.048 Other nonmedicinal substance allergy status; Z79.899 Other long term (current) drug therapy; Z79.82 Long term (current) use of aspirin; Z90.710 Acquired absence of both cervix and uterus; Z20.822 Contact with and (suspected) exposure to COVID-19
CPT/HCPCS: 0241U; 36415; 36600; 71045; 71275; 74177; 76705; 80053; 82803; 82947; 83605; 83690; 83880; 84145; 84484; 85025; 86140; 87040; 93005; 96361; 96365; 96367; 96368; 96372; 96375; 96376; 99285; J1650; J1790; J1956; J2405; J2543; J3370; J3490; J7050; J7120; Q9967

== ENCOUNTER 2023-11-02 18:44 | Emergency (ER) | payer MEDICAID ==
[2023-11-02 19:28] LABS: BASOPHILS ABSOLUTE AUTO 0.07 K/uL (0.00-0.10); BASOPHILS PERCENT AUTO 0.4 % (0.1-1.3); EOSINOPHILS PERCENT AUTO 2.4 % (0.0-5.4); HEMATOCRIT 43.5 % (34.3-46.0); HEMOGLOBIN 14.4 g/dL (11.2-15.5); IMMATURE GRAN ABSOLUTE AUTO 0.05 K/uL (0.00-0.23); IMMATURE GRAN PERCENT AUTO 0.3 % (0.0-0.7); LYMPHOCYTES ABSOLUTE AUTO 3.19 K/uL (0.8-3.3); LYMPHOCYTES PERCENT AUTO 19.4 % (11.4-47.7); MEAN CORPUSCULAR HEMOGLOBIN 28.2 pg (31.6-35.5); MEAN CORPUSCULAR HGB CONC 33.1 g/dL (31.6-35.5); MEAN CORPUSCULAR VOLUME 85.3 fL (81.4-99.0); MONOCYTES ABSOLUTE AUTO 0.93 K/uL (0.20-0.90); MONOCYTES PERCENT AUTO 5.7 % (3.3-12.6); NEUTROPHILS ABSOLUTE AUTO 11.81 K/uL (1.0-7.6); NEUTROPHILS PERCENT AUTO 71.8 % (40.0-78.1); PLATELET COUNT,PLT 280 K/uL (130-375); WHITE BLOOD CELL COUNT,WBC 16.5 K/uL (3.2-11.0)
[2023-11-02] MEDS: Ondansetron 4 MG/2 ML SDV IVPUSH ONE (19:32)
[2023-11-02] MEDS: Sodium Chloride 0.9% 1,000 ML IV ONE (19:32)
[2023-11-02 19:52] LABS: CALCIUM 8.7 mg/dL (8.5-10.1); CREATININE 1.2 mg/dL (0.6-1.0); EST CRCL DRUG DOSING (CG) 44.86 mL/min; POTASSIUM,K 4.1 mmol/L (3.6-5.2); TROPONIN I HIGH SENSITIVITY 7.4 pg/mL (<=60.3)
[2023-11-02 19:55] LABS: ANION GAP 14.1 mmol/L (5.0-14.0)
[2023-11-02 20:16] LABS: ALBUMIN 3.6 g/dL (3.4-5.0); BILIRUBIN DIRECT 0.11 mg/dL (0.0-0.2); BILIRUBIN INDIRECT 0.29; BILIRUBIN TOTAL 0.4 mg/dL (0.2-1.0); PROTEIN TOTAL,TP 7.1 g/dL (6.4-8.2)
[2023-11-02] MEDS: Prochlorperazine 10 MG/2 ML SDV IVPUSH ONE (20:30)
[2023-11-02 20:47] LABS: CORONAVIRUS COVID-19 NAA NEGATIVE (NEGATIVE); INFLUENZA A NAA NEGATIVE (NEGATIVE); INFLUENZA B NAA NEGATIVE (NEGATIVE); RESPIRATORY SYNCYTIAL VIR NAA NEGATIVE (NEGATIVE)
[2023-11-02] MEDS: Sodium Chloride 0.9% 100 ML IV SCH (20:58)
[2023-11-02] MEDS: Iopamidol 612 MG/ML 100 ML Bottle IV SCH (20:58)
[2023-11-02] MEDS: Sodium Chloride 0.9% 10 ML Syringe FLUSH PRN (20:58)
[2023-11-02 22:38] VITALS: BP 148/100; PULSE 86
== END 2023-11-02 22:59 | disposition home or self-care (01) ==
LOC: JP.ED 18:44
DX: K52.9 Noninfective gastroenteritis and colitis, unspecified (principal); I10 Essential (primary) hypertension; E78.00 Pure hypercholesterolemia, unspecified; I25.10 Atherosclerotic heart disease of native coronary artery without angina pectoris; E11.9 Type 2 diabetes mellitus without complications; Z79.82 Long term (current) use of aspirin; Z95.5 Presence of coronary angioplasty implant and graft; Z91.048 Other nonmedicinal substance allergy status; Z88.5 Allergy status to narcotic agent; Z88.2 Allergy status to sulfonamides
CPT/HCPCS: 0241U; 36415; 71260; 71260-26; 74177; 74177-26; 80048; 80076; 83605; 83690; 84484; 85025; 93005; 93010; 96361; 96374; 96375; 99283; 99284-25; J0780; J2405; J3490; J7030; Q9967

== ENCOUNTER 2024-03-03 23:07 | Emergency (ER) | payer MEDICAID ==
[2024-03-03 23:18] LABS: BASOPHILS ABSOLUTE AUTO 0.05 K/uL (0.00-0.10); BASOPHILS PERCENT AUTO 0.4 % (0.1-1.3); EOSINOPHILS ABSOLUTE AUTO 0.41 K/uL (0.00-0.40); EOSINOPHILS PERCENT AUTO 3.3 % (0.0-5.4); HEMATOCRIT 43.5 % (34.3-46.0); HEMOGLOBIN 14.4 g/dL (11.2-15.5); IMMATURE GRAN ABSOLUTE AUTO 0.05 K/uL (0.00-0.23); IMMATURE GRAN PERCENT AUTO 0.4 % (0.0-0.7); LYMPHOCYTES ABSOLUTE AUTO 3.41 K/uL (0.8-3.3); LYMPHOCYTES PERCENT AUTO 27.1 % (11.4-47.7); MEAN CORPUSCULAR HEMOGLOBIN 28.4 pg (31.6-35.5); MEAN CORPUSCULAR HGB CONC 33.1 g/dL (31.6-35.5); MEAN CORPUSCULAR VOLUME 85.8 fL (81.4-99.0); MONOCYTES ABSOLUTE AUTO 0.72 K/uL (0.20-0.90); MONOCYTES PERCENT AUTO 5.7 % (3.3-12.6); NEUTROPHILS ABSOLUTE AUTO 7.92 K/uL (1.0-7.6); NEUTROPHILS PERCENT AUTO 63.1 % (40.0-78.1); PLATELET COUNT,PLT 238 K/uL (130-375); RED BLOOD CELL COUNT 5.07 M/uL (3.77-5.24); WHITE BLOOD CELL COUNT,WBC 12.6 K/uL (3.2-11.0)
[2024-03-03] MEDS: Ondansetron 4 MG/2 ML SDV ONE (23:37)
[2024-03-03] MEDS: Ondansetron 4 MG/2 ML SDV IVPUSH ONE (23:37)
[2024-03-03 23:45] LABS: ANION GAP 10.2 mmol/L (5.0-14.0); CREATININE 1.1 mg/dL (0.6-1.0); EST CRCL DRUG DOSING (CG) 48.94 mL/min; POTASSIUM,K 3.8 mmol/L (3.6-5.2); TROPONIN I HIGH SENSITIVITY 8.1 pg/mL (<=60.3)
[2024-03-04] MEDS: Prochlorperazine 10 MG/2 ML SDV IVPUSH ONE (00:30)
[2024-03-04] MEDS: Sodium Chloride 0.9% 1,000 ML IV SCH (00:31)
[2024-03-04 01:48] VITALS: BP 168/95; PULSE 81
== END 2024-03-04 02:00 | disposition home or self-care (01) ==
LOC: JP.ED 23:07
DX: K52.9 Noninfective gastroenteritis and colitis, unspecified (principal); I10 Essential (primary) hypertension; I25.10 Atherosclerotic heart disease of native coronary artery without angina pectoris; I25.2 Old myocardial infarction; E78.00 Pure hypercholesterolemia, unspecified; E11.42 Type 2 diabetes mellitus with diabetic polyneuropathy; Z79.899 Other long term (current) drug therapy; Z79.82 Long term (current) use of aspirin; Z79.02 Long term (current) use of antithrombotics/antiplatelets; Z79.4 Long term (current) use of insulin; Z88.2 Allergy status to sulfonamides; Z88.5 Allergy status to narcotic agent; Z91.048 Other nonmedicinal substance allergy status
CPT/HCPCS: 36415; 71045; 80048; 84484; 85025; 93005; 96361; 96374; 96375; 99284; J0780; J2405; J7030; 93010

== ENCOUNTER 2025-03-04 12:42 | Emergency (ER) | payer MEDICAID ==
[2025-03-04 13:32] LABS: BASOPHILS ABSOLUTE AUTO 0.06 K/uL (0.00-0.10); BASOPHILS PERCENT AUTO 0.5 % (0.1-1.3); EOSINOPHILS ABSOLUTE AUTO 0.31 K/uL (0.00-0.40); EOSINOPHILS PERCENT AUTO 2.5 % (0.0-5.4); HEMATOCRIT 42.8 % (34.3-46.0); HEMOGLOBIN 13.7 g/dL (11.2-15.5); IMMATURE GRAN ABSOLUTE AUTO 0.08 K/uL (0.00-0.23); IMMATURE GRAN PERCENT AUTO 0.6 % (0.0-0.7); LYMPHOCYTES ABSOLUTE AUTO 1.74 K/uL (0.8-3.3); LYMPHOCYTES PERCENT AUTO 13.8 % (11.4-47.7); MEAN CORPUSCULAR HEMOGLOBIN 28.7 pg (31.6-35.5); MEAN CORPUSCULAR VOLUME 89.7 fL (81.4-99.0); MONOCYTES ABSOLUTE AUTO 0.52 K/uL (0.20-0.90); MONOCYTES PERCENT AUTO 4.1 % (3.3-12.6); NEUTROPHILS ABSOLUTE AUTO 9.91 K/uL (1.0-7.6); NEUTROPHILS PERCENT AUTO 78.5 % (40.0-78.1); PLATELET COUNT,PLT 397 K/uL (130-375); RED BLOOD CELL COUNT 4.77 M/uL (3.77-5.24); WHITE BLOOD CELL COUNT,WBC 12.6 K/uL (3.2-11.0)
[2025-03-04] MEDS: droPERidol 5 MG/2 ML SDV IVPUSH ONE (13:32)
[2025-03-04] MEDS: diphenhydrAMINE 50 MG/ML SDV IVPUSH ONE (13:36)
[2025-03-04] MEDS: Sodium Chloride 0.9% 1,000 ML IV ONE (13:40)
[2025-03-04 13:49] LABS: PROTHROMBIN TIME 9.9 sec (9.2-10.6)
[2025-03-04] MEDS: fentaNYL 50 MCG/ML SDV IVPUSH ONE (13:49)
[2025-03-04 13:53] LABS: A/G RATIO 0.8 (1.2-2.2); ALANINE AMINOTRANSFERASE,ALT 21 U/L (12-78); ALBUMIN 3.4 g/dL (3.4-5.0); ALKALINE PHOSPHATASE 128 U/L (46-116); ANION GAP 7.1 mmol/L (5.0-14.0); ASPARTATE AMNIOTRANSFERASE,AST 17 U/L (15-37); BILIRUBIN TOTAL 0.3 mg/dL (0.2-1.0); BLOOD UREA NITROGEN,BUN 13 mg/dL (7-18); CALCIUM 9.2 mg/dL (8.5-10.1); CARBON DIOXIDE,CO2 28 mmol/L (21-32); CHLORIDE,CL 107 mmol/L (100-108); CREATININE 1.1 mg/dL (0.6-1.0); EST CRCL DRUG DOSING (CG) 46.38 mL/min; ESTIMATED GFR 57 mL/min (>60); GLUCOSE RANDOM 203 mg/dL (74-106); PROTEIN TOTAL,TP 7.6 g/dL (6.4-8.2); SODIUM,NA 142 mmol/L (140-148)
[2025-03-04] MEDS: Sodium Chloride 0.9% 80 ML IV SCH (13:59)
[2025-03-04] MEDS: Iopamidol 612 MG/ML 100 ML Bottle IV PRN (13:59)
[2025-03-04] MEDS: Sodium Chloride 0.9% 10 ML Syringe FLUSH ONE (13:59)
[2025-03-04 14:56] LABS: APPEARANCE,URINE CLEAR (CLEAR); BILIRUBIN,URINE NEGATIVE (NEGATIVE); COLOR,URINE YELLOW (YELLOW); GLUCOSE,URINE 500 mg/dL (NEGATIVE); KETONES,URINE NEGATIVE (NEGATIVE); LEUKOCYTE ESTERASE,URINE NEGATIVE (NEGATIVE); NITRITE,URINE POSITIVE (NEGATIVE); OCCULT BLOOD,URINE TRACE-INTACT (NEGATIVE); PH,URINE 6.5 (5.0-8.0); PROTEIN,URINE NEGATIVE (NEGATIVE); UROBILINOGEN,URINE 0.2 EU/dL (0.2-1.0)
[2025-03-04 15:03] VITALS: BP 149/82; PULSE 81
[2025-03-04 15:06] LABS: AMORPHOUS SEDIMENT,URINE NOT SEEN; BACTERIA,URINE MANY; EPITHELIAL CELLS,URINE RARE; MUCUS,URINE RARE; RBC,URINE 0-5 (0-5)
== END 2025-03-04 15:30 | disposition home or self-care (01) ==
LOC: JP.ED 12:42
DX: R11.2 Nausea with vomiting, unspecified (principal); R10.9 Unspecified abdominal pain; I25.10 Atherosclerotic heart disease of native coronary artery without angina pectoris; I10 Essential (primary) hypertension; I25.2 Old myocardial infarction; E11.9 Type 2 diabetes mellitus without complications; Z88.5 Allergy status to narcotic agent; Z88.2 Allergy status to sulfonamides; Z91.048 Other nonmedicinal substance allergy status; Z79.899 Other long term (current) drug therapy; Z79.02 Long term (current) use of antithrombotics/antiplatelets; Z79.4 Long term (current) use of insulin
CPT/HCPCS: 36415; 74177; 80053; 81001; 83690; 85025; 85610; 93005; 96361; 96374; 96375; 99284; J1200; J1790; J7030; Q9967